=== PATIENT | female | born 1930 | race Caucasian/White ===

== ENCOUNTER 2019-08-26 04:59 | Emergency (ER) | payer MEDICARE, MEDICAID ==
[2019-08-26] MEDS ORDERED: Ondansetron 4 MG/2 ML SDV IVPUSH ONE (05:07)
[2019-08-26] MEDS ORDERED: Sodium Chloride 0.9% 10 ML Syringe FLUSH PRN (05:07)
[2019-08-26 05:10] VITALS: BP 92/62; PULSE 67
[2019-08-26] MEDS ORDERED: Sodium Chloride 0.9% 500 ML IV SCH (05:15)
--- NOTE | 2019-08-26 05:34 | EDM.PDOC ---
<Ignacio Aranda - Last Filed: 08/26/19 07:28> ED HPI GENERAL MEDICAL PROBLEM - General Chief Complaint: Cardiovascular Problem Stated Complaint: [facility] Time Seen by Provider: 08/26/19 05:01 - Related Data Allergies Allergy/AdvReac Type Severity Reaction Status Date / Time Penicillins Allergy Rash Verified 05/23/16 15:39 Home Meds: Home Meds Enalapril Maleate [Vasotec] 2.5 mg PO DAILY 04/02/14 [History] Metoprolol Succinate [Toprol XL 50mg] 100 mg PO DAILY #30 tab.er 04/06/14 [Rx] Acetaminophen [Tylenol] 650 mg PO BID PRN 12/31/15 [History] Multivitamin [Multivitamins] 1 tab PO DAILY 12/31/15 [History] Sennosides/Docusate Sodium [Senna-Docusate Sodium] 1 tab PO DAILY PRN 12/31/15 [ History] Aspirin 81 mg PO DAILY 08/26/19 [History] Cholecalciferol (Vitamin D3) [Vitamin D3] 1,000 unit PO DAILY 08/26/19 [History] Donepezil HCl 10 mg PO DAILY 08/26/19 [History] Course - Vital Signs Last Recorded V/S: Last Vital Signs Temp 97.6 F 08/26/19 05:03 Pulse 67 08/26/19 05:03 Resp 19 08/26/19 05:03 BP 92/62 08/26/19 05:03 Pulse Ox 95 08/26/19 05:03 - Orders/Labs/Meds Orders: Active Orders 24 hr Category Date Time Status Cardiac Monitoring [RC] . DIRECTED Care 08/26/19 05:07 Active EKG Documentation Completion [RC] STAT Care 08/26/19 05:08 Active Oxygen Therapy [RC] PRN Care 08/26/19 05:07 Active Peripheral IV Care [RC] . DIRECTED Care 08/26/19 05:07 Active Abdomen Pelvis wo Cont [CT] Stat Exams 08/26/19 05:09 Taken Lumbar Spine wo Cont [CT] Stat Exams 08/26/19 05:09 Taken ED Antiemetic Medication Reflex [OM.PC] Stat Oth 08/26/19 05:07 Ordered Peripheral IV Insertion Adult [OM.PC] Stat Oth 08/26/19 05:07 Ordered Labs: Laboratory Tests 08/26/19 08/26/19 Range/Units 05:25 05:25 WBC 13.31 H (3.98-10.04) K/mm3 RBC 2.91 L (3.98-5.22) M/mm3 Hgb 8.9 L D (11.2-15.7) gm/dl Hct 26.8 L (34.1-44.9) % MCV 92.1 (79.4-94.8) fl MCH 30.6 (25.6-32.2) pg MCHC 33.2 (32.2-35.5) g/dl RDW Std Deviation 43.1 (36.4-46.3) fL Plt Count 231 (182-369) K/mm3 MPV 9.2 L (9.4-12.3) fl Neut % (Auto) 84.8 H (34.0-71.1) % Lymph % (Auto) 10.1 L (19.3-51.7) % [place] % (Auto) 4.8 (4.7-12.5) % Eos % (Auto) 0.1 L (0.7-5.8) Baso % (Auto) 0.2 (0.1-1.2) % Neut # (Auto) 11.29 H (1.56-6.13) K/mm3 Lymph # (Auto) 1.34 (1.18-3.74) K/mm3 [place] # (Auto) 0.64 H (0.24-0.36) K/mm3 Eos # (Auto) 0.01 L (0.04-0.36) K/mm3 Baso # (Auto) 0.03 (0.01-0.08) K/mm3 Sodium 142 (136-145) mEq/L Potassium 3.9 (3.5-5.1) mEq/L Chloride 107 (98-107) mEq/L Carbon Dioxide 21 (21-32) mEq/L Anion Gap 17.9 H (5-15) BUN 41 H (7-18) mg/dL Creatinine 2.1 H (0.55-1.02) mg/dL Est Cr Clr Drug Dosing TNP Estimated GFR (MDRD) 22 (>60) mL/min BUN/Creatinine Ratio 19.5 H (14-18) Glucose 214 H (83-115) mg/dL Calcium 8.3 L (8.5-10.1) mg/dL Total Bilirubin 0.4 (0.2-1.0) mg/dL AST 13 L (15-37) U/L ALT 14 (14-59) U/L Alkaline Phosphatase 76 (46-116) U/L Troponin I < 0.017 (0.00-0.056) ng/mL Total Protein 5.4 L (6.4-8.2) g/dl Albumin 2.6 L (3.4-5.0) g/dl Globulin 2.8 gm/dL Albumin/Globulin Ratio 0.9 L (1-2) Meds: Medications Discontinued Medications Generic Name Dose Route Start Last Admin Trade Name Freq PRN Reason Stop Dose Admin Sodium Chloride 500 mls @ 1,000 mls/hr 08/26/19 05:15 08/26/19 05:21 Normal Saline IV 1,000 mls/hr .BOLUS GRAY Administration Ondansetron HCl 4 mg 08/26/19 05:07 08/26/19 05:22 Zofran IVPUSH 08/26/19 05:08 4 mg ONETIME ONE Administration Sodium Chloride 10 ml 08/26/19 05:07 08/26/19 05:21 Saline Flush FLUSH 10 ml ASDIRECTED PRN Administration Keep Vein Open - Re-Assessments/Exams Free Text/Narrative Re-Assessment/Exam: 08/26/19 07:28 Have been asked to confirm and declare time of . Cardiac moniter went to agonal rythm and patient stopped breathing at around 7:21. I did examined patient at 07:23 and she is not breathing, no heart tones, asystole with slight agonal acitivity on heart moniter, no pulse. Pupils midsize, nonreactive. Time of 07:23. Dr Park will do the certificate. I do agree with his hx and exam as documented. Many family members present and pastoral care at time of . Departure - Departure Disposition: 20 Clinical Impression: AAA (abdominal aortic aneurysm, ruptured) Referrals: PCP,Unknown [Primary Care Provider] - Forms: ED Department Discharge - My Orders Last 24 Hours: My Active Orders 08/26/19 05:07 Cardiac Monitoring [RC] . DIRECTED Oxygen Therapy [RC] PRN Peripheral IV Care [RC] . DIRECTED ED Antiemetic Medication Reflex [OM.PC] Stat Peripheral IV Insertion Adult [OM.PC] Stat 08/26/19 05:08 EKG Documentation Completion [RC] STAT 08/26/19 05:09 Abdomen Pelvis wo Cont [CT] Stat Lumbar Spine wo Cont [CT] Stat - Assessment/Plan Last 24 Hours: My Active Orders 08/26/19 05:07 Cardiac Monitoring [RC] . DIRECTED Oxygen Therapy [RC] PRN Peripheral IV Care [RC] . DIRECTED ED Antiemetic Medication Reflex [OM.PC] Stat Peripheral IV Insertion Adult [OM.PC] Stat 08/26/19 05:08 EKG Documentation Completion [RC] STAT 08/26/19 05:09 Abdomen Pelvis wo Cont [CT] Stat Lumbar Spine wo Cont [CT] Stat <[place] A - Last Filed: 08/26/19 19:45> ED HPI GENERAL MEDICAL PROBLEM - General Source of Information: Reports: Patient, EMS, Longterm Records History Limitations: Reports: No Limitations - History of Present Illness INITIAL COMMENTS - FREE TEXT/NARRATIVE: The patient presents from the retirement for hypotension, bradycardia, right flank and back pain. She fell over a week ago and this morning she had some pain in her right flank and right low back. She was given some tylenol that did not help and then she was given morphine rectally. After that, she had some hypotension and bradycardia. EMS gave her a 250ml bolus and her BP did improve. Her heart rate was better when they got there. When she arrived, she was alert and talking. She still had some pain to those areas but it was better. She has no fever, chills, cough, chest pain, abdominal pain, or vomiting. She does have some nausea. Her oxygen levels were low so she was put on some oxygen. She did admit to having some shortness of breath here. Onset: Gradual Duration: Week(s): Location: Reports: Back Quality: Reports: Sharp Severity: Moderate Improves with: Reports: Immobilization Worsens with: Reports: Movement Context: Reports: Trauma (Fell over a week ago.) Treatments BIOLOGICS SPECIALIST: Reports: IV/IO, Oxygen, Other (see below) Other Treatments BIOLOGICS SPECIALIST: service provider, fluid bolus Chest Pain Score (Numeric/FACES): 8 Past Medical History Cardiovascular History: Reports: Aneurysm, Hypertension Other Cardiovascular History: AAA without repair, tachycardia Respiratory History: Reports: COPD Other Respiratory History: pulmonary fibrosis, COPD Gastrointestinal History: Reports: Chronic Constipation BALLISTICS EXPERT History: Reports: Musculoskeletal History: Reports: Fracture, Osteoporosis Psychiatric History: Reports: Dementia Other Psychiatric History: insomnia - Past Surgical History Musculoskeletal Surgical History: Reports: Other (See Below) Social & Family History - Tobacco Use Smoking Status *Q: Unknown Ever Smoked ED ROS GENERAL - Review of Systems Review Of Systems: See Below Constitutional: Reports: No Symptoms HEENT: Reports: No Symptoms Respiratory: Reports: Shortness of Breath. Denies: Cough Cardiovascular: Reports: No Symptoms Endocrine: Reports: No Symptoms GI/Abdominal: Reports: Nausea. Denies: Abdominal Pain, Diarrhea, Vomiting : Reports: No Symptoms Musculoskeletal: Reports: Back Pain (Right flank and right lower back) Neurological: Reports: No Symptoms ED EXAM, GENERAL - Physical Exam Exam: See Below Exam Limited By: No Limitations General Appearance: Alert, No Apparent Distress Ears: Normal External Exam Nose: Normal Inspection Head: Atraumatic, Normocephalic Neck: Normal Inspection, Supple, Non-Tender Respiratory/Chest: No Respiratory Distress, Lungs Clear, Normal Breath Sounds Cardiovascular: Regular Rate, Rhythm, No Edema, No Murmur GI/Abdominal: Soft, Non-Tender, No Organomegaly, No Mass Back Exam: Other (Pain upon palpation to the right low back and flank) Extremities: Normal Inspection Neurological: Alert, Oriented, No Motor/Sensory Deficits EKG INTERPRETATION EKG Date: 08/26/19 Time: 05:18 Rhythm: NSR Rate (Beats/Min): 70 [place]: Normal P-Wave: Present QRS: Normal ST-T: Normal QT: Normal Course - Orders/Labs/Meds Labs: Laboratory Tests 08/26/19 08/26/19 Range/Units 05:25 05:25 WBC 13.31 H (3.98-10.04) K/mm3 RBC 2.91 L (3.98-5.22) M/mm3 Hgb 8.9 L D (11.2-15.7) gm/dl Hct 26.8 L (34.1-44.9) % MCV 92.1 (79.4-94.8) fl MCH 30.6 (25.6-32.2) pg MCHC 33.2 (32.2-35.5) g/dl RDW Std Deviation 43.1 (36.4-46.3) fL Plt Count 231 (182-369) K/mm3 MPV 9.2 L (9.4-12.3) fl Neut % (Auto) 84.8 H (34.0-71.1) % Lymph % (Auto) 10.1 L (19.3-51.7) % [place] % (Auto) 4.8 (4.7-12.5) % Eos % (Auto) 0.1 L (0.7-5.8) Baso % (Auto) 0.2 (0.1-1.2) % Neut # (Auto) 11.29 H (1.56-6.13) K/mm3 Lymph # (Auto) 1.34 (1.18-3.74) K/mm3 [place] # (Auto) 0.64 H (0.24-0.36) K/mm3 Eos # (Auto) 0.01 L (0.04-0.36) K/mm3 Baso # (Auto) 0.03 (0.01-0.08) K/mm3 Sodium 142 (136-145) mEq/L Potassium 3.9 (3.5-5.1) mEq/L Chloride 107 (98-107) mEq/L Carbon Dioxide 21 (21-32) mEq/L Anion Gap 17.9 H (5-15) BUN 41 H (7-18) mg/dL Creatinine 2.1 H (0.55-1.02) mg/dL Est Cr Clr Drug Dosing TNP Estimated GFR (MDRD) 22 (>60) mL/min BUN/Creatinine Ratio 19.5 H (14-18) Glucose 214 H (83-115) mg/dL Calcium 8.3 L (8.5-10.1) mg/dL Total Bilirubin 0.4 (0.2-1.0) mg/dL AST 13 L (15-37) U/L ALT 14 (14-59) U/L Alkaline Phosphatase 76 (46-116) U/L Troponin I < 0.017 (0.00-0.056) ng/mL Total Protein 5.4 L (6.4-8.2) g/dl Albumin 2.6 L (3.4-5.0) g/dl Globulin 2.8 gm/dL Albumin/Globulin Ratio 0.9 L (1-2) - Re-Assessments/Exams Free Text/Narrative Re-Assessment/Exam: 08/26/19 06:49 I ordered oxygen and for my nurse to continue the 500ml bolus. I ordered an EKG , CT of her abdomen and pelvis without contrast, CT of her lumbar spine, and labs. The metrology technician called me into CT and showed me the patient has a large infrarenal aneurysm that has ruptured and there is blood in the aneurysm. The patient went unresponsive and her BP dropped into the 40s. She was DNR/DNI. I called the family in and they are in agreement to let her . That is what she wanted. They just want comfort measures. Her WBC was elevated at 13.31. Her Hgb is low at 8.9. Her BUN is 41. Her creatinine is elevated at 2.1. Her glucose is 214. Her CT shows large infrarenal abdominal aortic aneurysm measuring 8cm associated with a large retroperitoneal hematoma consistent with a leaking or ruptured aortic aneurysm. The CT of her lumbar spine shows large infrarenal abdominal aortic aneurysm described on the recent abdominal CT. Large retroperitoneal hematoma described on the recent abdominal CT. No acute fracture. It is change of shift. Dr Aranda to take over. Departure - Departure Time of Disposition: 19:45 Preliminary Cause of *Q: Other_Special Instruction (AAA rupture)
--- NOTE | 2019-08-27 12:44 | CT ---
CT abdomen and pelvis Technique: Multiple axial sections were obtained from above the dome of the diaphragm inferiorly through the pubic symphysis. Intravenous and oral contrast not utilized. Comparison: No prior CT abdomen or pelvis exam. Findings: Large abdominal aortic aneurysm is seen. AP dimension is 7.6 cm. There is some interruption of the intimal calcifications being seen. Soft tissue density seen around this aneurysm extending into the right side of the abdomen and lesser within the left side of the abdomen which is compatible with blood. Findings are felt compatible with ruptured aortic aneurysm. Large hiatal hernia is noted. Visualized lung bases show nothing acute. Gallstones are seen within the gallbladder. Liver contains no focal abnormality. Spleen appears normal. Adrenal glands show no nodule. Cystic mass is noted within the body of the pancreas measuring approximately 1.7 cm. Pancreas is otherwise unremarkable. Kidneys show atrophy without hydronephrosis. No retroperitoneal adenopathy or mesenteric abnormalities are seen. Diverticuli seen within the sigmoid colon without diverticulitis. Left femoral fat containing hernia seen on the left side. Bone window settings were reviewed which show scattered degenerative change and scoliosis within the spine. No acute osseous finding is seen. Impression: 1. Large abdominal aortic aneurysm which shows evidence of rupture as described above. 2. 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 3. Other findings believed to be incidental as described above. Diagnostic code #5 This report was dictated in [place] Standard Time
--- NOTE | 2019-08-30 06:28 | CT ---
CT lumbar spine Technique: Multiple axial sections were obtained from above T12 inferiorly through the sacrum. Reconstructed coronal and sagittal images were obtained. Comparison: No prior lumbar spine imaging. Findings: Partially visualized abdominal aortic aneurysm is seen showing diffuse increased density around the aneurysm. This was seen on CT abdomen and pelvis study and is highly suspicious for rupturing aneurysm. Vertebral body heights and disc spaces are maintained. Vacuum phenomena is noted within the L5-S1 disc. There is disc space narrowing at L3-L4 with minimal vacuum phenomena. Mild scattered endplate osteophytes are seen. Degenerative apophyseal change is seen which is most prominent within the L4-L5 and L5-S1 apophyseal joints. Bony structures are osteopenic. No acute bony abnormality is seen. Degenerative change is noted within both sacroiliac joints. Diffuse circumferential disc bulging is seen throughout the lumbar spine. Impression: 1. Abdominal aortic aneurysm with increased density around the aneurysm compatible with rupturing of the aneurysm. This was described on CT abdomen and pelvis exam. 2. Osteopenia and degenerative change. 3. No acute bony abnormality is appreciated. Diagnostic code #5 This report was dictated in [place] Standard Time I agree with preliminary report from [facility], finalized on 08/26/19, 7:27 AM Central Time
== END 2019-08-26 08:45 | disposition expired ==
LOC: JD.ED 04:59
DX: I71.3 Abdominal aortic aneurysm, ruptured (principal); J44.9 Chronic obstructive pulmonary disease, unspecified; Z79.82 Long term (current) use of aspirin; Z79.899 Other long term (current) drug therapy; Z88.0 Allergy status to penicillin
CPT/HCPCS: 36415; 72131; 74176; 80053; 84484; 85025; 93005; 96374; 99285; J2405; J7030; 93010